=== PATIENT | male | born 1995 | race African-American/Black ===

== ENCOUNTER 2016-05-06 06:24 | Emergency (ER) | payer SELFPAY ==
[~2016-05-06] VITALS: Ht 175.3 cm; Wt 68.0 kg
[~2016-05-06 06:24] MED LIST: ERYT.5%O LEFT EYE; ZOVI200C24 PO
[2016-05-06 06:26] VITALS: BP 131/62; PULSE 92; RESP 16; TEMP 98.1
[2016-05-06] MEDS ORDERED: SODIUM CHLOR 0.9% 1000 ML INJ 1,000 ML IV SCH (06:34)
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
[2016-05-06 06:41] VITALS: O2SAT 100
[2016-05-06] MEDS ORDERED: SODIUM CHLORIDE 0.9% FLUSH 5 ML FLUSH IVF PRN (06:45)
[2016-05-06] MEDS ORDERED: ONDANSETRON HCL 4 MG/2 ML VIAL IVP ONE (06:45)
[2016-05-06 06:50] LABS: AUTOMATED NEUTROPHIL # 10.4 TH/MM3 (1.8-7.7); BASOPHIL % 0.4 % (0.0-2.0); EOSINOPHIL % 0.1 % (0.0-4.0); HEMATOCRIT 49.1 % (39.0-51.0); HEMO FLAGS DIFF FINAL; LYMPH % 1.7 % (9.0-44.0); LYMPHOCYTE # 0.2 TH/MM3 (1.0-4.8); MEAN CELL VOLUME 88.5 FL (80.0-100.0); MEAN CORPUSCULAR HGB CONC 33.9 % (32.0-36.0); MONO % 4.7 % (0.0-8.0); NEUT % 93.1 % (16.0-70.0); PLATELET COUNT 199 TH/MM3 (150-450); RED BLOOD COUNT 5.54 MIL/MM3 (4.50-5.90); RED CELL DISTRIBUTION WIDTH 12.8 % (11.6-17.2); WHITE BLOOD COUNT 11.2 TH/MM3 (4.0-11.0)
[2016-05-06 07:16] LABS: ALT (GPT) 24 U/L (12-78); ANION GAP 11 MEQ/L (5-15); AST (GOT) 24 U/L (15-37); BICARBONATE 23.1 MEQ/L (21.0-32.0); BLOOD UREA NITROGEN 21 MG/DL (7-18); CHLORIDE 107 MEQ/L (98-107); GLOMERULAR FILTRATION RATE 81 ML/MIN (>89); POTASSIUM 3.8 MEQ/L (3.5-5.1); SODIUM (NA) 141 MEQ/L (136-145)
[2016-05-06 07:18] LABS: ALKALINE PHOSPHATASE 115 U/L (45-117)
[2016-05-06] MEDS ORDERED: ZOFR4TAB PO (07:48)
--- NOTE | 2016-05-06 07:51 | PD ---
Data Data Last Documented VS Vital Signs Date Time Temp Pulse Resp B/P Pulse Ox O2 Delivery O2 Flow Rate FiO2 05/06/16 06:41 100 Room Air 05/06/16 06:26 98.1 92 16 131/62 Orders Complete Blood Count With Diff (05/06/16 06:34) Comprehensive Metabolic Panel (05/06/16 06:34) Lipase (05/06/16 06:34) Iv Access Insert/Monitor (05/06/16 06:34) Ecg Monitoring (05/06/16 06:34) Oximetry (05/06/16 06:34) Ondansetron Inj (Zofran Inj) (05/06/16 06:45) Sodium Chlor 0.9% 1000 Ml Inj (Ns 1000 M (05/06/16 06:34) Sodium Chloride 0.9% Flush (Ns Flush) (05/06/16 06:45) Labs Laboratory Tests Test 05/06/16 06:40 White Blood Count 11.2 TH/MM3 Red Blood Count 5.54 MIL/MM3 Hemoglobin 16.6 GM/DL Hematocrit 49.1 % Mean Corpuscular Volume 88.5 FL Mean Corpuscular Hemoglobin 30.0 PG Mean Corpuscular Hemoglobin 33.9 % Concent Red Cell Distribution Width 12.8 % Platelet Count 199 TH/MM3 Mean Platelet Volume 7.9 FL Neutrophils (%) (Auto) 93.1 % Lymphocytes (%) (Auto) 1.7 % Monocytes (%) (Auto) 4.7 % Eosinophils (%) (Auto) 0.1 % Basophils (%) (Auto) 0.4 % Neutrophils # (Auto) 10.4 TH/MM3 Lymphocytes # (Auto) 0.2 TH/MM3 Monocytes # (Auto) 0.5 TH/MM3 Eosinophils # (Auto) 0.0 TH/MM3 Basophils # (Auto) 0.0 TH/MM3 CBC Comment DIFF FINAL Differential Comment Sodium Level 141 MEQ/L Potassium Level 3.8 MEQ/L Chloride Level 107 MEQ/L Carbon Dioxide Level 23.1 MEQ/L Anion Gap 11 MEQ/L Blood Urea Nitrogen 21 MG/DL Creatinine 1.33 MG/DL Estimat Glomerular Filtration 81 ML/MIN Rate Random Glucose 105 MG/DL Calcium Level 8.6 MG/DL Total Bilirubin 1.0 MG/DL Aspartate Amino Transf 24 U/L (AST/SGOT) Alanine Aminotransferase 24 U/L (ALT/SGPT) Alkaline Phosphatase 115 U/L Total Protein 7.9 GM/DL Albumin 4.6 GM/DL Lipase 148 U/L [facility] Supervised Visit with [facility]: No Narrative Course Case checked out to me at [address] Benitez. 7:50 AM I have reevaluated the patient. He is doing well. He's not had any vomiting in the last 45 minutes. I reviewed his labs which reveal normal CBC and his comprehensive metabolic profile is normal except for minimal renal insufficiency part of which is chronic. I have reviewed his prior labs and his creatinine was always a bit high. He is a frequent visitor to the ER for largely minor complaints. Prescribed him some Zofran to use as needed. Mentation is consistent with a food poisoning type of illness and gradual resolution over a day or 2 is expected. Diagnosis Primary Impression: Nausea and vomiting Qualified Code: R11.2 - Non-intractable vomiting with nausea, unspecified vomiting type Scripts Ondansetron (Zofran)4 Mg Tab4 Mg PO Q6HR PRN (NAUSEA OR VOMITING) #12 TAB Ref 0 Prov:Yousuf Webb MD 05/06/16 Disposition: 01 DISCHARGE HOME Condition: Stable Yousuf Webb MD May 06, 2016 07:50
[2016-05-06 08:01] VITALS: BP 114/57
== END 2016-05-06 08:04 | disposition home or self-care (01) ==
LOC: NEPC 06:24
DX: R11.2 Nausea with vomiting, unspecified (principal); R19.7 Diarrhea, unspecified
CPT/HCPCS: 80053; 83690; 85025; 96361; 96374; 99284; J2405; J7030

== ENCOUNTER 2016-05-08 16:15 | Emergency (ER) | payer SELFPAY ==
[~2016-05-08] VITALS: Ht 175.3 cm; Wt 65.7 kg
[~2016-05-08 16:15] MED LIST changes: -ERYT.5%O LEFT EYE; +ZOFR4TAB PO; -ZOVI200C24 PO
[2016-05-08 16:19] VITALS: BP 118/65; PULSE 61; RESP 16; TEMP 98; O2SAT 98
[2016-05-08] MEDS ORDERED: ACYC800T PO (17:11)
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
== END 2016-05-08 17:24 | disposition home or self-care (01) ==
LOC: PHED 16:15 → PHEFT 17:24
DX: B00.9 Herpesviral infection, unspecified (principal)
CPT/HCPCS: 99283